=== PATIENT | male | born 1960 | race African-American/Black ===

== ENCOUNTER 2020-10-09 20:34 | Observation (INO) ==
[2020-10-09 21:31] LABS: Basophils % 0.3 % (0.0-0.8); Eosinophils # 0.1 10*3/uL (0.0-0.87); Hematocrit 44.4 VOL% (42.0-52.0); Hemoglobin 14.5 GM/DL (14.0-18.0); Immature Granulocytes % 0.3 %; Immature Granulocytes Absolute 0.02 #; Lymphocytes # 3.5 10*3/uL (1.4-4.0); Lymphocytes % 48.8 % (21.2-54.2); Mean Corpuscular HGB Conc 32.7 GM/DL (32-36); Mean Corpuscular Volume 89.3 FL (87-102); Mean Platelet Volume 11.9 FL (9.6-12.0); Monocytes % 7.1 % (1.7-12.7); Neutrophils % 42.5 % (38.7-73.9); Platelet Count 228 T/CUMM (130-400); Red Blood Count 4.97 MC/CUMM (3.8-5.5); Red Cell Distribution Width 14.6 % (9.3-17.3); White Blood Count 7.2 T/CUMM (4-12)
[2020-10-09 21:37] LABS: Albumin 4.5 G/DL (3.4-5.0); Bilirubin,Total 0.4 MG/DL (0.2-1.0); Calcium 8.7 MG/DL (8.5-10.1); Osmolality,Calculated 284.8 MOS/KG (273-304); Total Protein 7.9 G/DL (6.4-8.3)
[2020-10-09 21:44] LABS: PT Patient Result 10.7 SECS (9.8-11.9)
[2020-10-09] MEDS ORDERED: THIAMINE INJ 100 MG, FOLIC ACID INJ 1 MG, MULTIVITAMIN INJ 10 ML in SODIUM CHLORIDE 0.9... IV ONE (22:00)
[2020-10-09 22:47] LABS: Bilirubin,Urine Negative (Negative); Blood, Urine Small mg/dL (Negative); Glucose,Urine (UA) Negative (Negative); Ketones,Urine Negative (Negative); Mucus,Urine Occasional /LPF (Occasional); Nitrite,Urine Negative (Negative); Protein,Urine 30 MG/DL; RBC,Urine 1 /HPF (0-4); Squamous Epithelial Cell,Urine Occasional /HPF (0-10); Urine Appearance CLEAR (Clear); Urine Color Yellow (Yellow); Urine Specific Gravity 1.008 (1.001-1.035); Urine Urobilinogen < 2.0 EU/DL (0.2-1.0); WBC,Urine 1 /HPF (0-6)
[2020-10-09] MEDS ORDERED: DEXTROSE 50% 25 GM/50 ML VIAL IV PRN (23:00)
[2020-10-09] MEDS ORDERED: GLUCAGON 1 MG VIAL IM PRN (23:00)
[2020-10-09] MEDS ORDERED: ONDANSETRON 4 MG/2 ML VIAL IV PRN (23:00)
[2020-10-09] MEDS ORDERED: ACETAMINOPHEN 325 MG TABLET PO PRN (23:00)
[2020-10-09] MEDS ORDERED: ENOXAPARIN 40 MG/0.4 ML SYRINGE SUBCUT SCH (23:00)
[2020-10-09 23:05] LABS: Barbiturates Screen,Urine Negative (Negative); Benzodiazepines Screen,Urine Negative (Negative); Cannabinoid Screen,Urine Negative (Negative); Opiate Screen,Urine Negative (Negative); Phencyclidine Screen,Urine Negative (Negative)
[2020-10-09] MEDS ORDERED: LORazepam 2 MG/1 ML VIAL IV PRN (23:05)
[2020-10-09] MEDS ORDERED: ALBUTEROL 1.25 MG/3 ML NEB RESP TX PRN (23:13)
[2020-10-09] MEDS ORDERED: DOCUSATE SODIUM 100 MG CAPSULE PO PRN (23:20)
[2020-10-10 05:41] LABS: Calcium 8.4 MG/DL (8.5-10.1); Osmolality,Calculated 283.8 MOS/KG (273-304)
[2020-10-10 05:46] LABS: Troponin I 0.044 NG/ML (0.00-0.045)
[2020-10-10] MEDS ORDERED: carvediloL 12.5 MG TABLET PO SCH (08:00)
[2020-10-10] MEDS ORDERED: MULTIVITAMIN (CENTRUM) TABLET PO SCH (09:00)
[2020-10-10] MEDS ORDERED: ATORVASTATIN 40 MG TABLET PO SCH (09:00)
[2020-10-10] MEDS ORDERED: THIAMINE 100 MG TABLET PO SCH (09:00)
[2020-10-10] MEDS ORDERED: PANTOPRAZOLE 40 MG TABLET PO SCH (09:00)
[2020-10-10] MEDS ORDERED: FOLIC ACID 1 MG TABLET PO SCH (09:00)
[2020-10-10] MEDS ORDERED: ASPIRIN EC 81 MG TABLET PO SCH (09:00)
[2020-10-10] MEDS ORDERED: FLUTICASONE 50 MCG NASAL SPRAY 16 GM BOTTLE BOTH NARES SCH (09:00)
[2020-10-10 11:46] LABS: Troponin I 0.034 NG/ML (0.00-0.045)
[2020-10-10 12:21] VITALS: BP 139/81
[2020-10-10] MEDS ORDERED: THIAMINE INJ 100 MG, FOLIC ACID INJ 1 MG, MULTIVITAMIN INJ 10 ML in SODIUM CHLORIDE 0.9... IV SCH (22:00)
== END 2020-10-10 13:28 | disposition home or self-care (01) ==
LOC: EDBD → EDUNIT# → N.EDINP 20:34 → N.ED 20:34 → N.TELEN 10-10 00:40
PROVIDERS: ADMIT Internal Medicine; ATTEND Internal Medicine